=== PATIENT | female | born 1945 | race Caucasian/White ===

== ENCOUNTER 2016-08-03 09:02 | Observation (INO) | payer MEDICARE, OTHER ==
[2016-07-30 13:13] LABS: BASOPHILS 0.7 %; BASOPHILS ABSOLUTE 0.06 10/3/uL (0.0-0.16); EOSINOPHILS 2.2 %; EOSINOPHILS ABSOLUTE 0.18 10/3/uL (0.0-0.53); HEMATOCRIT 42.5 % (36.0-48.0); HEMOGLOBIN 14.8 g/dL (12.0-16.0); IMMATURE GRANULOCYTES 0.1 %; IMMATURE GRANULOCYTES ABSOLUTE 0.01 10/3/uL (0.0-0.11); LYMPHOCYTES 16.9 %; MEAN CORPUS HGB CONC 34.8 g/dL (32.0-36.0); MEAN CORPUSCULAR HEMOGLOB 31.8 pg (26.0-34.0); MEAN CORPUSCULAR VOLUME 91.4 fL (80-100); MEAN PLATELET VOLUME 9.7 fL (9.2-13.0); MONOCYTES 9.7 %; NEUTROPHILS 70.4 %; NEUTROPHILS ABSOLUTE 5.84 10/3/uL (2.02-8.40); PLATELET COUNT 222 10/3/uL (150-400); RBC DISTRIBUTION WIDTH 12.4 % (12.0-16.0); RED CELL COUNT 4.65 10/6/uL (4.0-5.6)
[2016-07-30 13:14] LABS: MANUAL DIFF NO %; WHITE BLOOD CELLS 8.3 10/3/uL (4.5-10.5)
[2016-07-30 13:30] LABS: ALBUMIN 3.8 G/DL (3.5-5.0); ALKALINE PHOSPHATASE 114 U/L (45-117); CALCIUM, SERUM 9.4 MG/DL (8.5-10.4); CHLORIDE, SERUM 105 MMOL/L (96-112); CO2 (CARBON DIOXIDE) 28 MMOL/L (24-34); GFR AFRICAN AMERICAN 100 ML/MIN (>=60); GFR NON AFRICAN AMERICAN 87 ML/MIN (>=60); GLUCOSE, SERUM 104 MG/DL (60-99); SGOT(AST) 19 U/L (5-40); SGPT(ALT) 20 U/L (5-65); SODIUM, SERUM 142 MMOL/L (135-148); TOTAL BILIRUBIN 0.8 MG/DL (0-1.2); TOTAL PROTEIN 7.8 G/DL (6.0-8.5)
[2016-07-30 13:31] LABS: BUN (BLOOD UREA NITROGEN) 16 MG/DL (6-23); POTASSIUM, SERUM 4.6 MMOL/L (3.5-5.3)
[2016-07-30 13:33] LABS: INTERNATIONAL NORMAL RATI 1.1 UNITS (-); PARTIAL THROMBO TIME 28.4 SEC (22.5-37.2); PROTIME (NOT ORD) 13.9 SEC (12.0-14.5)
[2016-07-30 13:45] LABS: PFA (COL/EPI) 112 SEC (72-180)
--- NOTE | ~2016-08-03 | OP ---
Record Of Operation [facility] [address] [place] [place]. [address] NAME: MILAGROS SINGH : 43 STATUS : DIS Tanner PAT#: [id number] AGE: 71 ADM/REG DATE : 08/03/16 MR#: [id number] REPORT SERV DATE: 08/06/16 DICTATED BY: VIKRAM HOLMAN DATE: 08/03/16 REPORT STATUS : Draft TRANSCRIBED BY: MODLucrecia DATE: 08/03/16 DATE OF PROCEDURE: 08/03/2016 PREOPERATIVE DIAGNOSIS: Left breast cancer. POSTOPERATIVE DIAGNOSIS: Left breast cancer. PROCEDURE: Bilateral skin-sparing mastectomy and left axillary sentinel lymph node biopsy. INDICATION FOR THE PROCEDURE: Mrs. Singh is a relatively healthy 71-year-old female, with an ulcerated mass in the left breast with skin scabbing. Biopsy was performed in the office with ultrasound guidance showing a malignancy. The patient is motivated for bilateral mastectomy with reconstruction. She has very old silicon implants which do need to be removed and therefore she is a good candidate. Additionally, a sentinel node biopsy will be performed, she presented for lymphoscintigraphy scan earlier this morning with good uptake in the axilla. OPERATIVE FINDINGS: After appropriate consent was on the chart, the patient was taken to the operating room in supine position. She was placed under general anesthesia without any complications. The gamma probe was placed into the left axilla and good uptake noted. Methylene blue was not utilized. Circum-vertical mastectomy incisions had been drawn on the skin by Dr. David's team and additionally I casey lines of the extent of the breast parenchyma, as well as the ellipse of tissue that would need to be removed from the skin involvement of the tumor. The bilateral breast, chest wall, and axilla were prepped and draped in sterile fashion. The left breast mastectomy was performed first. An incision made in a circum-vertical pattern with a #15 blade. Sharp dissection was carried down with plasma blade to the level of the breast parenchyma. Sharp dissection was carried out to the extent of the breast parenchyma in all directions except for where the tumor involved the skin. At this point, an incision was made in the elliptical godwin around the tumor and this was included in the mastectomy specimen en bloc. The remainder the mastectomy was performed. The breast was taken off the pectoralis muscle with the breast and implant intact. There was no leaking of silicone. No involvement of these implant at all. The breast was divided from the axillary fat pad at the axillary tail. Stitches were utilized to srinath the breast specimen and it was sent for permanent pathology. Lines of incision were explained to the pathologist. Left axillary sentinel node biopsy was performed in routine fashion. Gamma probe was utilized to excise two lymph nodes. The first of which had an ex- vivo count of 4234, sentinel node #2 had a count of 1802. The pathologist was given these lymph nodes, frozen section performed, and noted to be negative. The wound was copiously irrigated with warm saline. Hemostasis was achieved. A wet lap sponge was placed. The right breast mastectomy was performed in similar fashion. An incision made in a circum- vertical fashion with a #15 blade. Sharp dissection carried down to the level of the breast parenchyma and sharp dissection was carried out to the extent of the parenchyma in all directions. The breast was taken off the pectoralis muscle with the fascia intact as well as the implant. The implant was not opened and leaking was not noted throughout the procedure. The breast was divided from the axillary fat pad at the axillary tail, marked with sutures, and sent for permanent pathology. The wound was copiously irrigated with warm Record Of Operation [address] [address] NAME: MILAGROS SINGH : 43 STATUS : DIS Tanner PAT#: [id number] AGE: 71 ADM/REG DATE : 08/03/16 MR#: [id number] REPORT SERV DATE: 08/06/16 DICTATED BY: VIKRAM HOLMAN DATE: 08/03/16 REPORT STATUS : Draft TRANSCRIBED BY: CLEOPATRA DATE: 08/03/16 saline and hemostasis was achieved. A wet lap sponge was placed. Dr. David's team came in at this portion of the case for their part, please see their dictation for further details. At the end of my portion of the case, all counts were correct. ESTIMATED BLOOD LOSS: 50 mL. COMPLICATIONS: None. SPECIMEN: Bilateral breast with old intact silicone implant, and left sentinel node x2. ULICES/CLEOPATRA Vikram Holman MD / [id number] CC: Vikram Holman MD [facility] Srinath David M.D.
--- NOTE | ~2016-08-03 | OP ---
Record Of Operation [facility] [address] [place]. [address] NAME: MILAGROS SINGH : 43 STATUS : ADM Tanner PAT#: [id number] AGE: 71 ADM/REG DATE : 08/03/16 MR#: [id number] REPORT SERV DATE: 08/04/16 DICTATED BY: VIVIAN DAVID DATE: 08/04/16 REPORT STATUS : Draft TRANSCRIBED BY: CLEOPATRA DATE: 08/04/16 DATE OF PROCEDURE: 08/03/2016 PREOPERATIVE DIAGNOSIS: Breast cancer, surgical absence of the breast, history of 80s-era augmentation. POSTOPERATIVE DIAGNOSIS: Breast cancer, surgical absence of the breast, history of 80s-era augmentation. PROCEDURE: Bilateral tissue expansion, acellular dermal matrix reconstructions. 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 She has a concomitant left breast cancer. She is appropriate for the above-described operative intervention. DETAILS OF THE PROCEDURE: The patient presents on the operating table after bilateral capsulectomies by Dr. Love and bilateral mastectomies by Dr. Love. Our attention was immediately turned to the left breast. The pectoralis muscle was released and appropriately reconstituted. Sheet of acellular dermal matrix was then sewn to the cut edge of the pectoralis muscle and then used to recreate the inframammary crease. The purpose of the acellular dermal matrix was again to recreate the inframammary crease, stabilize the position of the tissue cosmetologist apprentice and supplement the soft tissue envelope. A 500 mL tissue cosmetologist apprentice was then placed behind the muscle AlloDerm construct tab fixed to the chest wall and the acellular dermal matrix was wrapped around its edge, it was filled to 200. On this side, there was a further soft tissue envelope excision where the breast cancer had involved the skin. This was then closed with a deep layer of 3-0 dermal Monocryls and intracuticular Monocryl. She was thoroughly irrigated with Hibiclens solution. Drains were placed. Ropivacaine was injected and then she was closed in a progressive tension fashion with multiple layers of 3-0 PDS and Monocryl through to an intracuticular in the skin. Our attention was then turned contralaterally. Again, the pectoralis muscle was released and an acellular dermal matrix was sewn to the cut edge of the pectoralis muscle and used to recreate the inframammary crease. This was an identical sheet used to an identical purpose and identical tissue cosmetologist apprentice was then placed behind the muscle AlloDerm construct. The AlloDerm was wrapped around it and was tab fixed to the chest wall. She was infiltrated with Ropivacaine, irrigated with Hibiclens solution, drains were placed. The implant was filled to 200 and then the soft tissue envelope was closed in a progressive tension fashion using multiple layers of Monocryl and PDS through to an intracuticular in the skin. She was cleansed with peroxide. Nitroglycerin paste dry dressings were placed. She was remanded to the recovery room in stable condition. All sponge and needle counts were correct. IRIS/CLEOPATRA Vivian David M.D. Record Of Operation [address] [address] NAME: MILAGROS SINGH : 43 STATUS : ADM Tanner PAT#: [id number] AGE: 71 ADM/REG DATE : 08/03/16 MR#: [id number] REPORT SERV DATE: 08/04/16 DICTATED BY: VIVIAN DAVID DATE: 08/04/16 REPORT STATUS : Draft TRANSCRIBED BY: CLEOPATRA DATE: 08/04/16 / [id number] CC: Fatuma Love MD
[~2016-08-03 09:02] MED LIST: AMOXIL500 MG PO; ASAB PO; BYSTOLIC5 MG PO; CALTRA600D PO; CRESTOR5 MG PO; LINZESS 145 M145 MCG PO; MAX25 PO; MIRALAX POWDER1 PKT PO; MULTIVITAMI1 PO; PROBIOTIC PO
[2016-08-04] MEDS ORDERED: MOMUD PO (13:49)
[2016-08-04] MEDS ORDERED: ALEVE220 MG PO (13:49)
[2016-08-04] MEDS ORDERED: AT25 PO (13:51)
[2016-08-04] MEDS ORDERED: PERCOCET1 TA2 PO (13:52)
[2016-08-04] MEDS ORDERED: K500 PO (13:52)
[2016-11-29] MEDS ORDERED: ARIMIDEX1 PO (15:19)
[2017-01-01] MEDS ORDERED: VITAMIN D31000 UNIT PO (11:57)
[2017-01-01] MEDS ORDERED: FEMARA PO (11:58)
== END 2016-08-04 11:15 | disposition home or self-care (01) ==
LOC: SDC 09:02 → SDC/OF 16:28 → 4EA 22:53
PROVIDERS: Surgery Surgery of the Hand; Surgery Surgical Oncology
PROC: 0HHV0NZ Insertion of Tissue Expander into Bilateral Breast, Open Approach (ICD-10-PCS; 2016-08-03)
PROC: 0HHV0NZ Insertion of Tissue Expander into Bilateral Breast, Open Approach (ICD-10-PCS; 2016-08-03)
PROC: 0HBV0ZZ Excision of Bilateral Breast, Open Approach (ICD-10-PCS; principal; 2016-08-03 12:45)
PROC: 07B60ZX Excision of Left Axillary Lymphatic, Open Approach, Diagnostic (ICD-10-PCS; 2016-08-03 12:45)
DX: C77.3 Secondary and unspecified malignant neoplasm of axilla and upper limb lymph nodes (principal); C50.912 Malignant neoplasm of unspecified site of left female breast; Z90.710 Acquired absence of both cervix and uterus; Z79.82 Long term (current) use of aspirin; Z79.899 Other long term (current) drug therapy; Z90.49 Acquired absence of other specified parts of digestive tract; Z98.890 Other specified postprocedural states
CPT/HCPCS: 71020; 78195; 80053; 85025; 85576; 85610; 85730; 88307; 88311; 88333; 88342; 88360; 93005; 96374; 96375; 96376; A9270-GY; A9541; C1789; G0378; J0360; J0690; J1885; J2250; J2270; J2405; J2710; J2795; J3010; Q4116

== ENCOUNTER 2017-01-04 10:18 | Day surgery (SDC) | payer MEDICARE, OTHER ==
[2017-01-01 14:50] LABS: PFA (COL/EPI) 97 SEC (72-180)
[2017-01-01 15:30] LABS: BASOPHILS 0.9 %; BASOPHILS ABSOLUTE 0.08 10/3/uL (0.0-0.16); EOSINOPHILS 2.4 %; EOSINOPHILS ABSOLUTE 0.21 10/3/uL (0.0-0.53); HEMATOCRIT 42.3 % (36.0-48.0); HEMOGLOBIN 14.6 g/dL (12.0-16.0); IMMATURE GRANULOCYTES 0.1 %; IMMATURE GRANULOCYTES ABSOLUTE 0.01 10/3/uL (0.0-0.11); LYMPHOCYTES 21.2 %; LYMPHOCYTES ABSOLUTE 1.89 10/3/uL (0.67-4.30); MEAN CORPUS HGB CONC 34.5 g/dL (32.0-36.0); MEAN CORPUSCULAR HEMOGLOB 30.9 pg (26.0-34.0); MEAN CORPUSCULAR VOLUME 89.6 fL (80-100); MEAN PLATELET VOLUME 9.8 fL (9.2-13.0); NEUTROPHILS 66.4 %; NEUTROPHILS ABSOLUTE 5.91 10/3/uL (2.02-8.40); PLATELET COUNT 261 10/3/uL (150-400); RBC DISTRIBUTION WIDTH 12.8 % (12.0-16.0); RED CELL COUNT 4.72 10/6/uL (4.0-5.6); WHITE BLOOD CELLS 8.9 10/3/uL (4.5-10.5)
[2017-01-01 15:32] LABS: MANUAL DIFF NO %
[2017-01-01 15:40] LABS: INTERNATIONAL NORMAL RATI 1.2 UNITS (-)
[2017-01-01 15:46] LABS: BUN (BLOOD UREA NITROGEN) 16 MG/DL (6-23); CHLORIDE, SERUM 105 MMOL/L (96-112); CO2 (CARBON DIOXIDE) 25 MMOL/L (24-34); CREATININE 0.69 MG/DL (0.55-1.02); GFR AFRICAN AMERICAN 101 ML/MIN (>=60); GFR NON AFRICAN AMERICAN 87 ML/MIN (>=60); GLUCOSE, SERUM 104 MG/DL (60-99); POTASSIUM, SERUM 3.8 MMOL/L (3.5-5.3); SODIUM, SERUM 139 MMOL/L (135-148)
--- NOTE | ~2017-01-04 | OP ---
Record Of Operation [facility] [address] [place]. [address] NAME: MILGAROS SINGH : 43 STATUS : REG [facility]#: [id number] AGE: 71 ADM/REG DATE : 01/04/17 MR#: [id number] REPORT SERV DATE: 01/04/17 DICTATED BY: VIVIAN DAVID DATE: 01/04/17 REPORT STATUS : Draft TRANSCRIBED BY: MODLucrecia DATE: 01/04/17 DATE OF PROCEDURE: 01/04/2017 PREOPERATIVE DIAGNOSIS: Surgical absence of the breast, history of breast cancer. POSTOPERATIVE DIAGNOSIS: Surgical absence of the breast, history of breast cancer. PROCEDURE: Bilateral tissue ash pit worker exchange to definitive silicone implants and fat grafting for deformity precipitated by mastectomy. INDICATIONS AND FINDINGS OF THE PROCEDURE: This middle-aged female is status post bilateral tissue expansion based breast reconstruction. She is appropriate for the above-described operative intervention. DETAILS OF THE PROCEDURE: The patient was brought to the operating room. After adequate sedation was achieved, she was prepped and draped in the usual sterile fashion for the above described procedure. First our attention was turned to the abdomen. Through stab incisions of the abdomen, approximately 350 mL of wetting solution was infiltrated into the periumbilical abdomen. Then, using a fat harvesting canister, 400 mL of fat was aspirated, treated, and then transferred into 20 mL syringes. Approximately 260 mL of fat was then remaining. This was then transferred in the usual fashion into a topographical map placed before surgery. With this completed, then she was cleansed with Hibiclens solution. Gloves were changed, and incision was made in the inframammary crease on the right. Dissection was carried down sharply to the level of the tissue ash pit worker. This was ruptured and removed. A superior capsulotomy was then carried out lateral. A popcorn capsulorrhaphy was undertaken. She was irrigated with Hibiclens solution and inferior 10-[place] drain was placed and then a 495 MH implant was placed into the site. This was manipulated into an appropriate position and the wounds were then closed over the 10-[place] drain with a deep layer of 3-0 Vicryl and multiple layers of 3-0 Monocryl through to an intracuticular in the skin. Identical procedure was then carried out on the other side. Incision was made. Dissection carried down to the level of the implant. The implant was ruptured and removed. A superior capsulotomy and lateral capsulorrhaphy were affected. She was irrigated. A 10-[place] drain was placed. The 495 was placed into the site, manipulated into an appropriate position and then closed with multiple layers of Vicryl and Monocryl through to an intracuticular in the skin. All stab harvest and injection incisions were closed with 5-0 fast-absorbing gut. She was cleansed with peroxide. Dry dressings were placed and she was remanded to the recovery room in stable condition. All sponge and needle counts were correct. IRIS/CLEOPATRA Vivian David M.D. / [id number] Record Of Operation [address] [address] NAME: MILAGROS SINGH : 43 STATUS : [place] [facility] [place]#: [id number] AGE: 71 ADM/REG DATE : 01/04/17 MR#: [id number] REPORT SERV DATE: 01/04/17 DICTATED BY: VIVIAN DAVID DATE: 01/04/17 REPORT STATUS : Draft TRANSCRIBED BY: CLEOPATRA DATE: 01/04/17 CC: Mendez Painter
[~2017-01-04 10:18] MED LIST changes: +ALEVE220 MG PO; +ARIMIDEX1 PO; +AT25 PO; +FEMARA PO; +K500 PO; +MOMUD PO; +PERCOCET1 TA2 PO; +VITAMIN D31000 UNIT PO
== END 2017-01-04 18:43 | disposition home or self-care (01) ==
LOC: SDC 10:18
PROVIDERS: Surgery Surgery of the Hand
PROC: 0HPT0NZ Removal of Tissue Expander from Right Breast, Open Approach (ICD-10-PCS; 2017-01-04)
PROC: 0HRV0JZ Replacement of Bilateral Breast with Synthetic Substitute, Open Approach (ICD-10-PCS; 2017-01-04)
PROC: 0HPU0NZ Removal of Tissue Expander from Left Breast, Open Approach (ICD-10-PCS; principal; 2017-01-04 12:00)
DX: Z45.812 Encounter for adjustment or removal of left breast implant (principal); Z45.811 Encounter for adjustment or removal of right breast implant; Z79.899 Other long term (current) drug therapy; Z90.710 Acquired absence of both cervix and uterus; Z98.890 Other specified postprocedural states; Z85.3 Personal history of malignant neoplasm of breast; Z90.49 Acquired absence of other specified parts of digestive tract
CPT/HCPCS: 80048; 85025; 85576; 85610; 93005; A9270-GY; C1789; J0690; J2250; J2405; J3010